=== PATIENT | male | born 1935 | race Caucasian/White ===

== ENCOUNTER → 2017-07-21 | Outpatient (CLI) | payer OTHER ==
[~2017-07-21] MED LIST: DIGOXIN125 MCG PO; FISH OIL 1,0001 EAC7 PO; HYDROCHLOROTHIA25 MG PO; LANTUS 10100 UNITS/ SC; LISINOPRIL20 MG PO; LOPRESSOR100 M1 PO; OMEPRAZOLE20 MG PO; PRAVASTATIN SOD40 MG PO; WARFARIN SODIUM5 MG PO; WARFARIN SODIUM6 MG PO; [UNRECOGNIZED DRUG - OTHER] PO
== END | disposition home or self-care (01) ==
DX: M16.12 Unilateral primary osteoarthritis, left hip (principal); R26.2 Difficulty in walking, not elsewhere classified; M25.552 Pain in left hip; M25.652 Stiffness of left hip, not elsewhere classified; M62.81 Muscle weakness (generalized); Z74.1 Need for assistance with personal care
CPT/HCPCS: 97161 GP; 97165 GO; 97530 GP; 97535 GO; G8978 GP; G8979 GP; G8980 GP; G8987 GO; G8988 GO; G8989 GO

== ENCOUNTER 2017-08-10 21:42 | Inpatient (IN) | payer OTHER ==
[~2017-08-10] VITALS: Ht 175.3 cm; Wt 84.5 kg
[~2017-08-10 21:42] MED LIST changes: +COUMADIN1 MG PO; +FARXIGA5 MG PO; +JANTOVEN5 MG PO
[2017-08-11 06:25] VITALS: BP 161/82
[2017-08-11 06:34] LABS: INTER. NORMALIZED RATIO 1.2
[2017-08-11 10:16] LABS: HEMATOCRIT 38.3 % (38.0-50.0); MCH 29.1 PG (29.0-34.0); MCHC 32.4 G/DL (30.0-36.0); MCV 89.9 FL (86-99); PLATELET COUNT 150 K/uL (156-360); RBC DIS.WIDTH-CV 12.7 % (11.8-14.6); RBC DIS.WIDTH-SD 42.3 % (39-53); RED BLOOD COUNT 4.26 M/uL (4.00-5.50); WHITE BLOOD COUNT 6.5 K/uL (4.1-10.2)
[2017-08-11 10:21] LABS: HEMOGLOBIN 12.4 G/DL (12.5-16.6)
[2017-08-11 15:25] VITALS: BP 143/85
[2017-08-11 20:00] VITALS: BP 145/77
[2017-08-12 00:13] VITALS: BP 146/93
[2017-08-12 03:54] VITALS: BP 140/91
[2017-08-12 06:03] LABS: CHLORIDE 103 MEQ/L (99-109); CREATININE 1.1 MG/DL (0.6-1.3); GFR ESTIMATE (CALCULATED) > 59 mL/min/ (58.99-99999); GLUCOSE 122 mg/dL (70-99); POTASSIUM 3.8 MEQ/L (3.7-5.4); SODIUM 134 MEQ/L (136-147); UREA NITROGEN (BUN) 12 mg/dL (9-23)
[2017-08-12 08:20] VITALS: BP 159/92
[2017-08-12 10:52] LABS: INTER. NORMALIZED RATIO 1.2
[2017-08-12 13:03] VITALS: BP 170/84
[2017-08-12 19:19] VITALS: BP 135/80
[2017-08-13 01:05] VITALS: BP 142/81
[2017-08-13 04:54] VITALS: BP 142/76
[2017-08-13 05:51] LABS: INTER. NORMALIZED RATIO 1.3
[2017-08-13 07:44] VITALS: BP 143/66
[2017-08-13 12:03] VITALS: BP 164/85
[2017-08-13 15:51] VITALS: BP 140/83
[2017-08-13 23:28] VITALS: BP 146/80
[2017-08-14 06:50] LABS: INTER. NORMALIZED RATIO 1.4
[2017-08-14 08:15] VITALS: BP 140/89
[2017-08-14] MEDS ORDERED: SENNA PLUS TAB1 EACH PO (08:37)
[2017-08-14] MEDS ORDERED: ENDOCET 5-3251 EACH PO (08:38)
== END 2017-08-14 13:40 | DRG 470 ==
LOC: ENRESERV 21:42 → 2SOUTH 08-11 05:46 → 3EAST 08-11 05:46 → ENRESERV 08-11 13:00 → 2SOUTH 08-11 13:42 → 3EAST 08-11 15:22 → 2SOUTH 08-11 18:26 → 3EAST 08-14 13:40
PROVIDERS: Orthopaedic Surgery
PROC: 0SRB0JZ Replacement of Left Hip Joint with Synthetic Substitute, Open Approach (ICD-10-PCS; principal; 2017-08-11)
DX: M16.12 Unilateral primary osteoarthritis, left hip (principal); I10 Essential (primary) hypertension; E11.9 Type 2 diabetes mellitus without complications; I48.91 Unspecified atrial fibrillation; E78.00 Pure hypercholesterolemia, unspecified; Z87.891 Personal history of nicotine dependence; Z79.01 Long term (current) use of anticoagulants
CPT/HCPCS: 71045; 73501; 80048; 82948; 85027; 85610; J0131; J0690; J1170; J1815; J2405; J7050; Q0161